=== PATIENT | male | born 1935 | race Caucasian/White ===

== ENCOUNTER → 2016-10-08 | Outpatient (CLI) | payer OTHER ==
--- NOTE | 2016-10-09 13:25 | RAD ---
History: Pneumonia. Chest x-ray: PA and lateral views are compared with 2016 exam. Contour of the heart and mediastinum is within normal limits. Small granulomas are present in the right greater than left lungs and appear stable. No definite infiltrate or effusion. Anterior cervical fusion is partially seen with bridging syndesmophytes throughout the thoracic spine. IMPRESSION: Stable chest since 09/2015. Electronically signed by: Cyndie Angeles MD 10/09/2016 1:18 PM CDT
== END ==
LOC: RAD 14:35
PROVIDERS: ATTEND Nurse Practitioner Family
DX: J41.8 Mixed simple and mucopurulent chronic bronchitis (principal)

== ENCOUNTER 2016-10-26 11:46 | Emergency (ER) | payer OTHER ==
[2016-10-26 12:00] VITALS: TEMP 98.5
--- NOTE | 2016-10-26 12:13 | ED.PDOC ---
History of Present Illness - General Chief Complaint: Back Pain or Injury Stated Complaint: back and abdominal pain Time Seen by Provider: 10/26/16 12:06 Source: patient Exam Limitations: no limitations - History of Present Illness Initial Comments: Erick Lewis 81 y/o male stated that his abdomen had been hurting constantly the last 2 1/2 days which had got worse this morning had bm earlier today ,no diarrhea ,no blood in urine was dry heaving but no nausea/vomiting. Timing/Duration: other - 2 1/2 days Severity: moderate Improving Factors: nothing Worsening Factors: nothing Associated Symptoms: denies symptoms Allergies/Adverse Reactions: Allergies NO KNOWN ALLERGY Allergy (Verified 09/12/15 12:51) Home Medications: Ambulatory Orders Aspirin [Aspirin Adult Low Dose] 81 mg PO DAILY 10/26/16 Famotidine [Pepcid AC] 10 mg PO BID #20 tab 10/26/16 Ondansetron [Zofran Odt] 4 mg PO Q8HRS PRN #10 tab 10/26/16 Tamsulosin [Flomax] 0.4 mg PO QD #10 cap 10/26/16 Review of Systems - Review of Systems Constitutional: States: no symptoms reported EENTM: States: no symptoms reported Respiratory: States: no symptoms reported Cardiology: States: no symptoms reported Gastrointestinal/Abdominal: States: see HPI Genitourinary: States: no symptoms reported Musculoskeletal: States: no symptoms reported Skin: States: no symptoms reported Neurological: States: no symptoms reported Endocrine: States: no symptoms reported Past Medical History (General) - Patient Medical History Hx Cardiac Disorders: Yes Hx Congestive Heart Failure: No Hx Hypertension: Yes Hx Diabetes: No Surgical History: other - neck,back,shoulder,left mastectomy-breast cancer, colonoscopy - Vaccination History Hx Influenza Vaccination: Yes Hx Pneumococcal Vaccination: No - Social History Hx Tobacco Use: No Hx Alcohol Use: No Hx Substance Use: No - Activities of Daily Living Patient Lives Alone: No - Grooming Ability: Independent Eating (Feeding) Ability: Independent Toileting Ability: Independent Family Medical History - Family History Mother Family History: Unknown Living Status: Hx Cardiac Disease: Yes - mom-cad Physical Exam - Physical Exam General Appearance: Alert, Anxious, No apparent distress Eye Exam: bilateral normal Ears, Nose, Throat: hearing grossly normal, normal ENT inspection, normal pharynx Neck: non-tender, full range of motion Respiratory: chest non-tender, lungs clear, normal breath sounds, no respiratory distress Cardiovascular/Chest: normal peripheral pulses, regular rate, rhythm, no edema, no murmur Peripheral Pulses: radial,right: 2+, radial,left: 2+ Gastrointestinal/Abdominal: normal bowel sounds, non tender, soft, distended, tenderness - all over no peritoneal signs, other - tympanitic Back Exam: normal inspection, no CVA tenderness, no vertebral tenderness Extremity: normal range of motion, non-tender, normal inspection, no pedal edema , no calf tenderness Neurologic: no motor/sensory deficits, alert, oriented x 3 Skin Exam: normal color, warm/dry Lymphatic: no adenopathy Progress - Results/Orders Results/Orders: Laboratory Results WBC 11.0 K/mm3 (4.8-10.8) H 10/26/16 12:42 RBC 5.15 M/mm3 (4.70-6.10) 10/26/16 12:42 Hgb 16.2 gm/dL (14.0-18.0) 10/26/16 12:42 Hct 46.8 % (42.0-52.0) 10/26/16 12:42 MCV 91.0 fl (80.0-94.0) 10/26/16 12:42 MCH 31.5 pg (27.0-31.0) H 10/26/16 12:42 MCHC 34.6 g/dL (33.0-37.0) 10/26/16 12:42 RDW 14.6 % (11.5-14.5) H 10/26/16 12:42 Plt Count 149 K/mm3 (130-400) 10/26/16 12:42 MPV 7.1 fl (7.40-10.4) L 10/26/16 12:42 Absolute Neuts (auto) 9.60 K/uL (1.8-6.8) H 10/26/16 12:42 Absolute Lymphs (auto) 0.60 K/uL (1.0-3.4) L 10/26/16 12:42 Absolute Monos (auto) 0.80 K/uL (0.2-0.8) 10/26/16 12:42 Absolute Eos (auto) 0.00 K/uL (0.0-0.4) 10/26/16 12:42 Absolute Basos (auto) 0.00 K/uL (0.0-0.1) 10/26/16 12:42 Neutrophils % 86.7 % (42.0-78.0) H 10/26/16 12:42 Lymphocytes % 5.6 % (20.0-50.0) L 10/26/16 12:42 Monocytes % 7.3 % (2.0-9.0) 10/26/16 12:42 Eosinophils % 0.0 % (1.0-5.0) L 10/26/16 12:42 Basophils % 0.4 % (0.0-2.0) 10/26/16 12:42 Sodium 133 mmol/L (135-145) L 10/26/16 12:42 Potassium 4.2 mmol/L (3.6-5.0) 10/26/16 12:42 Chloride 101 mmol/L (101-111) 10/26/16 12:42 Carbon Dioxide 24 mmol/L (21-31) 10/26/16 12:42 Anion Gap 12.2 (12-18) 10/26/16 12:42 BUN 25 mg/dL (7-18) H 10/26/16 12:42 Creatinine 1.38 mg/dL (0.6-1.3) H 10/26/16 12:42 BUN/Creatinine Ratio 18.1 (10-20) 10/26/16 12:42 Random Glucose 138 mg/dL (70-105) H 10/26/16 12:42 Serum Osmolality 273.0 mOsm/L (275-295) L 10/26/16 12:42 Calcium 8.8 mg/dL (8.4-10.2) 10/26/16 12:42 Total Bilirubin 1.4 mg/dL (0.2-1.0) H 10/26/16 12:42 AST 25 IU/L (10-42) 10/26/16 12:42 ALT 23 IU/L (10-60) 10/26/16 12:42 Alkaline Phosphatase 58 IU/L (42-121) 10/26/16 12:42 Serum Total Protein 7.6 gm/dL (6.4-8.2) 10/26/16 12:42 Albumin 4.0 g/dl (3.2-5.5) 10/26/16 12:42 Globulin 3.6 gm/dL (2.3-3.5) H 10/26/16 12:42 Albumin/Globulin Ratio 1.1 (1.1-1.9) 10/26/16 12:42 Lipase 20 U/L (22-51) L 10/26/16 12:42 Urine Color Yellow (Yellow) 10/26/16 13:09 Urine Appearance Clear (Clear) 10/26/16 13:09 Urine pH 7.0 (4.5-7.8) 10/26/16 13:09 Ur Specific [place] 1.025 (1.005-1.030) 10/26/16 13:09 Urine Protein 100 mg/dL H 10/26/16 13:09 Urine Glucose (UA) Negative mg/dL (Negative) 10/26/16 13:09 Urine Ketones 15 mg/dL (NEGATIVE) H 10/26/16 13:09 Urine Blood Small (Negative) H 10/26/16 13:09 Urine Nitrite Negative 10/26/16 13:09 Urine Bilirubin Negative (NEGATIVE) 10/26/16 13:09 Urine Urobilinogen 2.0 mg/dL (0.2-1.0) H 10/26/16 13:09 Ur Leukocyte Esterase Negative (Negative) 10/26/16 13:09 Urine RBC 3-5 /hpf H 10/26/16 13:09 Urine WBC 0 /hpf 10/26/16 13:09 Ur Epithelial Cells 1-3 /hpf 10/26/16 13:09 Urine Bacteria 0 10/26/16 13:09 - EKG/XRAY/CT EKG: Sinus, no ST T wave changes Comments: heart rate-97 CT Ordered: Yes - abd/pelvis left proximal ureteral stone Departure - Departure Clinical Impression: Ureterolithiasis Abdominal pain Qualifiers: Abdominal location: generalized Qualified Code(s): R10.84 - Generalized abdominal pain Time of Disposition: 16:13 Disposition: Discharge to Home or Self Care Condition: Good Departure Forms: ED Discharge - Pt. Copy, Patient Portal Self Enrollment Instructions: Kidney Stones (Alternative Therapy), Kidney Stones -- Adult, DI for Kidney Stones Referrals: vYrose Landaverde NP [Primary Care Provider] - 1-2 Weeks Prescriptions: Ondansetron [Zofran Odt] 4 mg PO Q8HRS PRN #10 tab PRN Reason: Nausea/Vomiting Famotidine [Pepcid AC] 10 mg PO BID #20 tab Tamsulosin [Flomax] 0.4 mg PO QD #10 cap Home Medications: Ambulatory Orders Aspirin [Aspirin Adult Low Dose] 81 mg PO DAILY 10/26/16 Famotidine [Pepcid AC] 10 mg PO BID #20 tab 10/26/16 Ondansetron [Zofran Odt] 4 mg PO Q8HRS PRN #10 tab 10/26/16 Tamsulosin [Flomax] 0.4 mg PO QD #10 cap 10/26/16 Additional Instructions: DRINK EXTRA FLUIDS;CALL UP DR. AYAD LEE'S OFFICE YOUR UROLOGIST IN AM 2016;RETURN TO EMERGENCY ROOM NEEDED;Aleve(otc)-two tablets am/pm for pain; Hydrocodone 10 mg every 6 hours for pain(home meds)
[2016-10-26] MEDS ORDERED: fentaNYL CITRATE INJ 50 MCG/ML AMP IV ONE (12:24)
[2016-10-26 13:03] VITALS: O2SAT 94
--- NOTE | 2016-10-26 14:42 | CT ---
EXAM DESCRIPTION: Abdoment/Pelvis w/o Contrast CLINICAL HISTORY: distention/pain COMPARISON: None Available TECHNIQUE: Contiguous axial images of the abdomen and pelvis were obtained followed by reconstruction images. This exam was performed according to our departmental dose-optimization program, which includes automated exposure control, adjustment of the mA and/or kV according to patient size and/or use of iterative reconstruction technique. FINDINGS: There are coronary arterial calcifications. There are calcified pulmonary nodules and calcified lymph nodes as well as calcifications within the spleen compatible prior granulomatous disease. Linear opacities within the lungs may represent scar versus subsegmental atelectasis. There is a small hiatal hernia. The left kidney demonstrates hydronephrosis and perinephric stranding due to a 4.6 mm stone within the proximal ureter. There is a left renal cyst. There is a nonobstructive stone within the right kidney. There are diverticuli without CT evidence of acute diverticulitis. Appendix was not visualized with certainty, there is no pericecal inflammation. There are degenerative changes of lumbar spine. There is evidence of prior lumbar surgery. The liver, spleen, and pancreas within normal limits. There The gallbladder is unremarkable by CT criteria. Adrenal glands are within normal limits. Aorta is of normal caliber and tapering. There is no free fluid in the abdomen or pelvis. There is no bowel obstruction. IMPRESSION: Left-sided hydronephrosis due to a 4.6 mm stone within the proximal ureter. Electronically signed by: Rasheed Guevara MD 10/26/2016 2:42 PM CDT
[2016-10-26] MEDS ORDERED: HYDROmorphone HCL INJ 2 MG/ML VIAL IV ONE (14:56)
[2016-10-26] MEDS ORDERED: TAMSULOSIN 0.4 MG CAP PO ONE (14:56)
[2016-10-26] MEDS ORDERED: SODIUM CHLORIDE 0.9% 500ML 500 ML IVS ONE (14:58)
[2016-10-26] MEDS: KETOROLAC TROMETHAMINE INJ 30 MG/ML VIAL IM ONE ×2 (15:02→15:15)
[2016-10-26] MEDS ORDERED: KETOROLAC TROMETHAMINE INJ 30 MG/ML VIAL IV ONE (15:12)
[2016-10-26] MEDS ORDERED: ONDANSETRON INJ 4 MG/2 ML VIAL IV ONE (16:09)
[2016-10-26 16:35] VITALS: BP 123/74
== END 2016-10-26 16:35 | disposition home or self-care (01) ==
LOC: ER 11:46
DX: N20.1 Calculus of ureter (principal); I10 Essential (primary) hypertension; Z79.82 Long term (current) use of aspirin; Z79.899 Other long term (current) drug therapy
CPT/HCPCS: 36415; 74176; 80053; 81001; 83690; 85025; 93005; J1170; J1885; J2405; J3010; J7040

== ENCOUNTER → 2016-12-30 | Outpatient (CLI) | payer OTHER | END | disposition home or self-care (01) | LOC: YCFC.O 10:41 | PROVIDERS: ATTEND Nurse Practitioner Family | DX: R42 Dizziness and giddiness (principal); I10 Essential (primary) hypertension ==

== ENCOUNTER → 2017-04-09 | Outpatient (CLI) | payer OTHER | END | disposition home or self-care (01) | LOC: YCFC.O 14:38 | DX: R53.82 Chronic fatigue, unspecified (principal); N52.9 Male erectile dysfunction, unspecified ==

== ENCOUNTER → 2017-08-14 | Outpatient (CLI) | payer OTHER ==
--- NOTE | 2017-08-15 19:32 | RAD ---
Procedure: XR CHEST 2 VIEWS Exam date: 08/14/2017 12:00 AM SQL ARCHITECT Ordering Provider: JAMILA Canela Clinical Indication: PERSISTENT COUGH Comparison: October 08, 2016 Findings: Cardiomediastinal silhouette is within normal limits. The lungs are clear. No pleural effusion or pneumothorax. Osseous structures are nonacute. No evidence of active tuberculosis. Impression: No acute cardiopulmonary process. Electronically signed by: Ruddy Gibbs MD 08/15/2017 7:31 PM SQL ARCHITECT
--- NOTE | 2017-08-15 19:32 | RAD ---
Procedure: 2 view right femur Exam Date: 08/14/2017 12:00 AM HANDBAG FINISHER Ordering Provider: JAMILA Canela Clinical Indication: PAIN IN LOWER LIMB Comparison: None Findings: There is no acute fracture. There is no dislocation. There is no cortical abnormality. There is no lytic or sclerotic lesion. There is no subcutaneous gas. There is no suspicious calcification. Impression: 1. Negative exam of the right femur. Electronically signed by: Ruddy Gibbs MD 08/15/2017 7:32 PM HANDBAG FINISHER
== END ==
LOC: RAD 14:30
PROVIDERS: ATTEND Nurse Practitioner Family
DX: R05 Cough (principal); M79.604 Pain in right leg

== ENCOUNTER → 2017-08-17 | Outpatient (CLI) | payer OTHER ==
--- NOTE | 2017-08-17 14:16 | RAD ---
EXAM DESCRIPTION: Hip,Right 2 Views CLINICAL HISTORY: 81 years, Male, PAIN IN RIGHT LEG COMPARISON: Right femur August 14, 2017 TECHNIQUE: AP and frog leg lateral views of the right hip FINDINGS: Two-view right hip shows no fracture or bone lesion. Prominent osteophyte is seen along the lateral margin of the acetabulum. Degenerative narrowing of the pubic symphysis and inferior right SI joint. There is mild medial hip joint space narrowing. Normal bone mineral density and trabecular pattern. Spurring is seen at the medial femoral head neck junction. Convex femoral head neck junction seen on the frog-leg lateral view could indicate cam lesion impingement type anatomy. IMPRESSION: Degenerative changes as described. Electronically signed by: Trevon Allen MD 08/17/2017 2:15 PM CDT
--- NOTE | 2017-08-17 14:17 | RAD ---
EXAM DESCRIPTION: Pelvis CLINICAL HISTORY: 81 years Male, PAIN IN RIGHT LEG COMPARISON: None. TECHNIQUE: Single AP x-ray view of the pelvis including the hips. FINDINGS: Degenerative changes are seen in the lower L-spine. Sacrum appears intact. Mild degenerative changes at the SI joints. Degenerative spurring is seen at the lateral margins of the right more than left acetabulum with mild degenerative changes at the pubic symphysis. IMPRESSION: Negative for fracture or dislocation. Electronically signed by: Trevon Allen MD 08/17/2017 2:16 PM CDT
== END ==
LOC: YCFC.O 10:43
PROVIDERS: ATTEND Nurse Practitioner Family
DX: M79.604 Pain in right leg (principal)

== ENCOUNTER → 2018-04-13 | Outpatient (CLI) | payer OTHER | LOC: LAB.O 16:49 | PROVIDERS: ATTEND Nurse Practitioner Family | DX: Z01.818 Encounter for other preprocedural examination (principal) ==

== ENCOUNTER → 2018-07-21 | Outpatient (CLI) | payer OTHER | LOC: LAB.O 15:42 | PROVIDERS: ATTEND Urology | DX: E29.1 Testicular hypofunction (principal); R97.20 Elevated prostate specific antigen [PSA] ==

== ENCOUNTER → 2018-08-31 | Outpatient (CLI) | payer OTHER ==
--- NOTE | 2018-08-31 19:24 | CT ---
EXAM DESCRIPTION: Abdomen/Pelvis w/wo Contrast: Computed Tomography. CLINICAL HISTORY: VENTRAL INCISIONAL HERNIA. Lower abdominal pain. COMPARISON: CT scan of the abdomen without contrast 10/26/2016. TECHNIQUE: Spiral-axial scans at 5.0 mm intervals through the abdomen and pelvis before and after 100 mL nonionic IV contrast. No oral contrast. Coronal and sagittal 2.0 mm reconstructions. 5 mm Delayed helical-axial scans, liver through the pubic symphysis. No adverse reactions. Total Exam DLP 2154.94 mGy - cm. This exam was performed according to our departmental CT dose-optimization program which includes automated exposure control, adjustment of the mA and/or kV according to patient size and/or use of iterative reconstruction technique; to reduce radiation dose to as low as reasonably achievable (ALARA). FINDINGS: Abdominal Wall/Back Soft Tissues: The midline anterior abdominal wall inferior to the umbilicus demonstrates increased density consistent with a postsurgical incision. No protrusion of mesentery indicating a hernia. Mesentery posterior to the incision site is unremarkable. No fluid collection. No abnormal enhancement or mass in the abdominal wall abutting the incision site. Fatty inguinal hernia on the right not containing bowel or fluid. Lung bases and pleura: Tiny subpleural nodules base of the left lung and bilateral small calcified nodules in the lower lobes. Unchanged. Coronary artery calcifications. Liver, Stomach, Spleen, Adrenal Glands: Calcification versus surgical device abutting the left gastroesophageal junction is stable. Small calcifications in the spleen are unchanged. Small hiatal hernia is stable. Liver and adrenal glands negative. Pancreas, Gallbladder, Ducts: Gallbladder visualized. Duct unremarkable. Spleen negative. Kidneys and Ureters: 3 mm nonobstructing stone mid right kidney. Stable cyst posterior left kidney. Ureters are unremarkable. Mesentery: Negative. Aorta: Mild to moderate atherosclerotic calcification minimal distal narrowing. Small Bowel: Normal caliber. Terminal Ileum/Cecum: Cecum distended by fecal material which is a chronic appearance. Fluid in the distal ileum and TI. Appendix not seen. Colon: Moderate filling by fecal matter with no other distention. Scattered diverticula sigmoid colon. Pelvic Organs: Enlarged prostate gland impressing on the base of the urinary bladder largest transverse dimensions approximately 5 0.6 x 4.4 cm. Similar size on the prior study. No radiodense stones in the bladder with minimal wall thickening. No free fluid. Spine and Bony Pelvis: Again noted is decreased bone density, lumbar levoscoliosis. Posterior fusion construct L2-L3 with interbody fusion L5-S1 and multiple levels of spondylosis. Advanced arthrosis bilateral hips with acetabular over coverage and possible cam-type femoral acetabular impingement. No significant change since the prior study.. IMPRESSION: 1. No postsurgical incisional hernia midline lower abdomen and pelvis. No complications in the abdominal wall or abdominal cavity. 2. Right inguinal hernia not containing bowel or fluid is stable. 3. Stable nonobstructing stone in the right kidney. 4. Stable enlarged prostate gland impressing on the base of the urinary bladder with minimal bladder wall thickening. Electronically signed by: Matt Millard MD 08/31/2018 7:21 PM CDT
== END ==
LOC: LAB.O 08:33
PROVIDERS: ATTEND Nurse Practitioner Family
DX: K43.2 Incisional hernia without obstruction or gangrene (principal); K40.90 Unilateral inguinal hernia, without obstruction or gangrene, not specified as recurrent; N20.0 Calculus of kidney; N40.0 Benign prostatic hyperplasia without lower urinary tract symptoms

== ENCOUNTER 2018-12-06 10:20 | Emergency (ER) | payer OTHER ==
--- NOTE | 2018-12-06 10:49 | ED.PDOC ---
History of Present Illness - General Time Seen by Provider: 12/06/18 10:39 Source: patient, family Additional Information: 83 YEAR OLD PRESENTS TO THE ED WITH UNSTEADY GAIT DIZZINESS WORSE THIS MORNING AT 9.30 HE REPORTS HE STUMBLED YESTERDAY COMING [facility] HE HAS KNOWN HISTORY OF CAD STENT SUPPORTED ANGIOPLASTY LAST STENT [address] GOODMAN AT [facility] HE DENIES HEADACHE SHORTNESS OF BREATH CHEST PAIN SYNCOPE OR FOCAL WEAKNESS OR NUMBNESS HOME MEDICATIONS INCLUDE ASPRIN 81 MG METOPROLOL 25 MG - History of Present Illness Allergies/Adverse Reactions: Allergies NO KNOWN ALLERGY Allergy (Verified 12/06/18 10:58) Home Medications: Ambulatory Orders Aspirin [Aspirin Adult Low Dose] 81 mg PO DAILY 10/26/16 Famotidine [Pepcid AC] 10 mg PO BID #20 tab 10/26/16 Ondansetron [Zofran Odt] 4 mg PO Q8HRS PRN #10 tab 10/26/16 Tamsulosin [Flomax] 0.4 mg PO QD #10 cap 10/26/16 Past Medical History (General) - Patient Medical History Hx Cardiac Disorders: Yes Hx Congestive Heart Failure: No Hx Hypertension: Yes Hx Diabetes: No - Vaccination History Hx Influenza Vaccination: Yes Hx Pneumococcal Vaccination: No - Social History Hx Tobacco Use: No Hx Alcohol Use: No Hx Substance Use: No Family Medical History - Family History Mother Family History: Unknown Living Status: Hx Cardiac Disease: Yes - mom-cad Physical Exam - Physical Exam General Appearance: Alert, Comfortable Eye Exam: bilateral normal Ears, Nose, Throat: hearing grossly normal, normal ENT inspection, normal pharynx Neck: non-tender, full range of motion, supple Respiratory: chest non-tender, lungs clear, normal breath sounds, no respiratory distress, no accessory muscle use Cardiovascular/Chest: normal peripheral pulses, regular rate, rhythm, no edema, no gallop, no JVD Gastrointestinal/Abdominal: normal bowel sounds, non tender, soft, no organomegaly, no pulsatile mass Back Exam: normal inspection, no CVA tenderness, no vertebral tenderness 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, no motor/sensory deficits, alert, normal mood/affect, oriented x 3 Skin Exam: normal color, warm/dry Lymphatic: no adenopathy Progress - Results/Orders Results/Orders: Laboratory Tests 12/06/18 12/06/18 12/06/18 10:30 10:30 10:30 WBC 6.2 RBC 5.22 Hgb 16.6 Hct 47.6 MCV 91.1 MCH 31.7 H MCHC 34.8 RDW 15.3 H Plt Count 171 MPV 7.8 Absolute Neuts (auto) 4.10 Absolute Lymphs (auto) 1.50 Absolute Monos (auto) 0.40 Absolute Eos (auto) 0.10 Absolute Basos (auto) 0.10 Neutrophils % 66.7 Lymphocytes % 23.8 Monocytes % 6.7 Eosinophils % 2.0 Basophils % 0.8 PT 9.9 INR 0.99 PTT (SP) 25.3 Sodium 137 Potassium 4.2 Chloride 106 Carbon Dioxide 23 Anion Gap 12.2 BUN 17 Creatinine 0.82 BUN/Creatinine Ratio 20.7 H Random Glucose 121 H Serum Osmolality 276.6 Calcium 9.1 Total Bilirubin 0.8 AST 33 ALT 30 Alkaline Phosphatase 68 Troponin I Serum Total Protein 7.1 Albumin 4.0 Globulin 3.1 Albumin/Globulin Ratio 1.3 12/06/18 10:30 WBC RBC Hgb Hct MCV MCH MCHC RDW Plt Count MPV Absolute Neuts (auto) Absolute Lymphs (auto) Absolute Monos (auto) Absolute Eos (auto) Absolute Basos (auto) Neutrophils % Lymphocytes % Monocytes % Eosinophils % Basophils % PT INR PTT (SP) Sodium Potassium Chloride Carbon Dioxide Anion Gap BUN Creatinine BUN/Creatinine Ratio Random Glucose Serum Osmolality Calcium Total Bilirubin AST ALT Alkaline Phosphatase Troponin I < 0.02 Serum Total Protein Albumin Globulin Albumin/Globulin Ratio 1.10 PM PT FEELING MUCH IMPROVED HE AMBULATED WELL HERE TO SYMPTOMS OF DIZZINESS WEAKNESS OR ATAXIA NOTED OR REPORTED WILL DC HOME AND FOLLOW UP WITH PCP FOR OUTPATIENT WORK UP OF POSSIBLE ATHEROSCLEROSIS OF CEREBRAL VASCULATURE TO INCREASE METOPROLOL FOR BETTER BLOOD PRESSURE CONTROL Departure - Departure Clinical Impression: Ataxia, Cardiovascular disease, Uncontrolled hypertension Time of Disposition: 13:21 Disposition: Discharge to Home or Self Care Condition: Good Diet: low salt diet Referrals: Genny Canela NP [Primary Care Provider] - 1-2 Weeks Home Medications: Ambulatory Orders Aspirin [Aspirin Adult Low Dose] 81 mg PO DAILY 10/26/16 Famotidine [Pepcid AC] 10 mg PO BID #20 tab 10/26/16 Ondansetron [Zofran Odt] 4 mg PO Q8HRS PRN #10 tab 10/26/16 Tamsulosin [Flomax] 0.4 mg PO QD #10 cap 10/26/16 Comments: SUGGEST TO INCREASE METOPROLOL TO 50 MG Q DAY FROM 25 MG AND FOLLOW UP WITH OUR PCP IF SYMPTOMS RECUR PLEASE RETURN
--- NOTE | 2018-12-06 11:26 | CT ---
EXAM DESCRIPTION: Head CLINICAL HISTORY: CVA COMPARISON: None available TECHNIQUE: Multiple axial images of the head without contrast. Multiplanar reformatted images. This exam was performed according to our departmental dose-optimization program, which includes automated exposure control, adjustment of the mA and/or kV according to patient size and/or use of iterative reconstruction technique. FINDINGS: There is no CT evidence of intracranial hemorrhage, mass effect, or large territory infarction. Moderate generalized volume loss. Moderate patchy supratentorial white matter hypodensities. There are no abnormal extra-axial fluid collections. Calcific plaque in the visualized arteries. There is no acute calvarial defect. The visualized paranasal sinuses and the mastoids are clear. IMPRESSION: 1. No CT evidence of an acute intracranial abnormality. If there is concern for an acute or subacute infarct, consider follow-up MRI. 2. Advanced senescent changes. Electronically signed by: Ad Daigle MD 12/06/2018 11:24 AM CDT
[2018-12-06] MEDS ORDERED: hydrALAZINE HCl 20 MG/ML VIAL IV ONE (11:36)
--- NOTE | 2018-12-06 12:02 | RAD ---
Study: Single Frontal Radiograph of the Chest. Indication:htn Comparison: August 14, 2017 Impression: Cardiomegaly with minimal interstitial edema. No consolidation, pleural effusion, pneumothorax. Scattered calcified granulomas noted throughout the lungs. Atherosclerosis aorta. No acute osseous abnormality. A small hiatal hernia suspected. Electronically signed by: Jay Chun MD 12/06/2018 12:00 PM CDT
[2018-12-06 13:08] VITALS: TEMP 97.2
[2018-12-06 13:34] VITALS: BP 168/107; O2SAT 98
== END 2018-12-06 13:35 | disposition home or self-care (01) ==
LOC: ER 10:20
DX: I10 Essential (primary) hypertension (principal); I25.10 Atherosclerotic heart disease of native coronary artery without angina pectoris; R27.0 Ataxia, unspecified; Z79.82 Long term (current) use of aspirin; Z79.899 Other long term (current) drug therapy; Z95.5 Presence of coronary angioplasty implant and graft
CPT/HCPCS: 70450; 71045; 80053; 84484; 85025; 85610; 85730; J0360

== ENCOUNTER → 2018-12-30 | Outpatient (CLI) | payer OTHER ==
--- NOTE | 2018-12-30 15:41 | RAD ---
EXAM DESCRIPTION: Lumbar Spine 3 Views CLINICAL HISTORY: Acute low back pain COMPARISON: CT abdomen and pelvis 10/26/2016 TECHNIQUE: AP/lateral/coned-down lateral FINDINGS: Conventional five nonrib-bearing lumbar segments. Redemonstration of posterior spinal decompression at L2-L4 and posterior transpedicular hardware fixation at L2-L3. No displaced hardware fracture or hardware complication. Mild chronic anterior vertebral body height loss at L1 and T12, unchanged. No acute compression fracture or significantly appearing subluxation. Multilevel degenerative changes with intervertebral disc height loss, endplate sclerosis and marginal osteophyte are most pronounced at L5-S1. The bone mineralization is decreased. IMPRESSION: No radiographic evidence of acute displaced lumbar spine fracture or significantly appearing subluxation. Intact hardware fixation at L2-L3. Electronically signed by: Leonardo Reynoso DO 12/30/2018 3:40 PM CDT
== END ==
LOC: RAD 12:39
PROVIDERS: ATTEND Nurse Practitioner Family
DX: M54.5 Low back pain (principal); Z98.890 Other specified postprocedural states

== ENCOUNTER → 2019-04-12 | Outpatient (CLI) | payer OTHER | LOC: LAB.O 08:15 | PROVIDERS: ATTEND Internal Medicine Interventional Cardiology | DX: E78.5 Hyperlipidemia, unspecified (principal) ==